=== PATIENT | female | born 1930 | race Caucasian/White ===

== ENCOUNTER 2018-08-09 10:47 | Inpatient (IN) | payer MEDICARE, BC ==
[~2018-08-09] VITALS: Ht 167.6 cm; Wt 84.0 kg
[2018-08-09] MEDS ORDERED: LEVSOD100 PO (11:01)
[2018-08-09] MEDS ORDERED: ATEN50 PO (11:01)
[2018-08-09] MEDS ORDERED: BRIMONIDINE TART5 M1 OP (11:01)
[2018-08-09] MEDS ORDERED: LATANOPROST2.5 ML OP (11:02)
[2018-08-09] MEDS ORDERED: LOSA50 PO (11:02)
[2018-08-09 11:25] LABS: BASOPHILS ABSOLUTE AUTO 0.05 K/mm3 (0.00-0.23); BASOPHILS PERCENT AUTO 1 % (0-2); EOSINOPHILS ABSOLUTE AUTO 0.14 K/mm3 (0.00-0.68); EOSINOPHILS PERCENT AUTO 2 % (0-6); Hematocrit 45.6 % (33.0-51.0); Hemoglobin 14.3 g/dL (11.5-16.0); IMMATURE GRAN ABSOLUTE AUTO 0.03 K/mm3 (0.00-0.10); IMMATURE GRAN PERCENT AUTO 0 % (0-1); LYMPHOCYTES ABSOLUTE AUTO 0.99 K/mm3 (0.84-5.20); LYMPHOCYTES PERCENT AUTO 11 % (21-46); MONOCYTES PERCENT AUTO 7 % (4-13); Mean Corpuscular HGB 29.9 pg (26.0-34.0); Mean Corpuscular HGB Conc 31.4 g/dL (31.5-36.5); Mean Corpuscular Volume 95 fL (80-100); Mean Platelet Volume 10.3 fL (9.1-12.4); NEUTROPHILS ABSOLUTE AUTO 6.85 K/mm3 (1.96-9.15); NEUTROPHILS PERCENT AUTO 79 % (41-73); Platelet Count 176 K/mm3 (150-400); RDW Coefficient Variation 13.6 % (11.7-14.2); RDW Standard Deviation 47.9 fL (35.1-46.3); Red Blood Cell Count 4.79 M/mm3 (3.80-5.20); White Blood Cell Count 8.66 K/mm3 (4.00-11.30)
[2018-08-09 11:44] LABS: Anion Gap 9 mmol/L (6-16); Blood Urea Nitrogen 13 mg/dL (8-24); Bun/Creatinine Ratio 16.8 (12.0-20.0); CO2, Blood 24 mmol/L (21-32); Calcium, Blood 9.1 mg/dL (8.5-10.1); Chloride, Blood 109 mmol/L (98-108); Creatinine, Blood 0.77 mg/dL (0.40-1.00); Glomerular Filtration Rate >60 (60-); Glucose, Blood 142 mg/dL (70-99); Potassium, Blood 5.1 mmol/L (3.5-5.5); Sodium, Blood 142 mmol/L (136-145); Troponin I 0.208 ng/mL (0.000-0.040)
[2018-08-09 11:46] LABS: Source, Urine Clean Catch
[2018-08-09 11:53] LABS: Bilirubin, Urine Neg (Neg); Blood, Urine 2+ (Neg); Glucose Qualitative, Urine Neg (Neg); Ketones, Urine Neg (Neg); Leukocyte Esterase, Urine 1+ (Neg); Nitrite, Urine Neg (Neg); Protein, Urine Neg (Neg); Urobilinogen, Urine NORM (Normal)
[2018-08-09 12:12] LABS: Appearance, Urine Hazy (Clear); Bacteria Few /hpf; Color, Urine Yellow (P-Yellow); Squamous Epithelial Cells Many /hpf (Few); White Blood Cells, Urine 0-2 /hpf (0-5)
[2018-08-09] MEDS ORDERED: LOSA25 PO (15:01)
[2018-08-09] MEDS ORDERED: Aspirin325 MG PO (15:06)
--- NOTE | 2018-08-09 18:51 | NUR ---
PT ARRIVED TO THE MEDICAL FLOOR FROM THE ER AROUND 1445, VIA WHEELCHAIR, A/OX 3, PLEASANT AND COOPERATIVE THE PT IS UP WITH MINIMAL ASSIST TO THE BATHROOM, THE PT IS MILDLY SOB WITH ACTIVITY AT THIS TIME, THE PT WAS ORIENTED TO THE ROOM LAYOUT AND CALL SYSTEM, CALL LIGHT IN REACH, BED IN THE LOW POSITION FRO PT SAFETY
[2018-08-09 18:56] LABS: PCO2 Arterial 34.9 mmHg (35-45); PO2 Arterial 80.8 mmHg (80-100); pH Blood Arterial 7.51 (7.35-7.45)
[2018-08-10 04:02] LABS: Creatinine, Blood 0.95 mg/dL (0.40-1.00); Potassium, Blood 3.7 mmol/L (3.5-5.5)
--- NOTE | 2018-08-10 06:19 | NUR ---
SUMMARY: A/OX4, SPECIFIES NEEDS AND INDEPENDENT IN ROOM. PT DIURESING WELL W/ IMPROVED LS AND SWELLING HAS GONE DOWN TO BLE'S. SHE CONT'S 100% PACED ON TELE AT 60'S BPM AND REMAINS ON 2L O2 VIA NC. SOME SOB NOTED W/EXERTION. PT REPORTS PAIN IN L.ARM BUT REFUSES TYLENOL AND HAS REQUESTED THAT HOME NORCO BE RX'D, AWAITING CALL BACK FROM HOSPITALIST. NO ACUTE CHANGES. VSS/AFEBRILE. WILL MONITOR AND REPORT TO DAY RN.
--- NOTE | 2018-08-10 08:20 | NUR ---
Pt gave consent for care to student nurse Erika Blanco on 08/09/18 for clinical on 08/10/18.
--- NOTE | 2018-08-10 16:05 | NUR ---
PT IS A/OX3, PLEASANT AND COOPERATIVE, THE PT APPEARS TO BE MILDLY ANXIOUS AT BASELINE THE PT IS UP IND IN THE ROOM TO THE BATHROOM, PT IS MILDLY SOB WITH EXCERTION, PT APPEARS TO BE BREATHING EASILY AT REST, THE PT WAS MEDICATED FOR PAIN IN HER RIGHT ARM AND BACK TODAY X1 PER HER REQUEST, THE PT DENIED ANY CHEST PAIN TODAY, CALL LIGHT IN REACH, BED IN THE LOW POSITION
--- NOTE | 2018-08-11 03:44 | NUR ---
SUMMARY: A/OX4, INDEPENDENT IN ROOM AND KNOWS TO CALL FOR ASSIST OOB IF SOB. SHE'S DENIED PAIN AND ALL OTHER COMPLAINTS THIS SHIFT. BLE EDEMA CONT'S TO IMPROVE W/DIURESIS AND LESS PITTING NOTED TO ANKLES. LS ARE CLEAR AND DIMINISHED TO BASES W/SPO2 WNL ON RA. NO ACUTE CHANGES, VSS/AFEBRILE. WILL MONITOR AND REPORT TO DAY RN.
[2018-08-11] MEDS ORDERED: FURO40 PO (13:05)
--- NOTE | 2018-08-11 13:51 | NUR ---
PT DISCHARGED THE PT VERBALIZED UNDERSTANDING OF THE DISCHARGE INSTRUCTIONS, PERSCRIPTION FAXED TO [facility] IN [place] PER PT REQUEST, THE PT APPEARED TO BE BREATHING EASILY ON RA AT DISCHARGE, MILDLY SOB WITH EXCERTION, PT WAS TRANSFERED VIA WHEELCHAIR ACCOMPAINIED BY [employer] AND FRIENDS
== END 2018-08-11 13:49 | disposition home or self-care (01) | DRG 291 ==
LOC: ER 10:47 → MEDS 13:50 → ER 14:39 → MEDS 14:47
PROVIDERS: Emergency Medicine; ADMIT Internal Medicine
DX: I11.0 Hypertensive heart disease with heart failure (principal); I50.31 Acute diastolic (congestive) heart failure; I24.8 Other forms of acute ischemic heart disease; Z95.2 Presence of prosthetic heart valve; E03.9 Hypothyroidism, unspecified; R09.02 Hypoxemia; R77.8 Other specified abnormalities of plasma proteins; Z66 Do not resuscitate; Z95.0 Presence of cardiac pacemaker; Z79.899 Other long term (current) drug therapy; Z88.0 Allergy status to penicillin; Z88.1 Allergy status to other antibiotic agents; Z88.8 Allergy status to other drugs, medicaments and biological substances; Z85.3 Personal history of malignant neoplasm of breast; Z86.718 Personal history of other venous thrombosis and embolism; Z28.20 Immunization not carried out because of patient decision for unspecified reason
CPT/HCPCS: 36415; 36600; 71045; 80048; 81001; 82803; 83880; 84443; 84484; 85025; 87086; 93005; 93010; 93306; 96374; 99285-25; J1650; J1940

== ENCOUNTER 2019-11-16 17:21 | Inpatient (IN) | payer MEDICARE, BC ==
[~2019-11-16] VITALS: Ht 167.6 cm; Wt 83.4 kg
[~2019-11-16 17:21] MED LIST: ATEN50 PO; BRIMONIDINE TART5 M1 OP; LATANOPROST2.5 ML OP; LOSA50 PO
[2019-11-16 18:11] LABS: Source, Urine Catheter
[2019-11-16 18:15] LABS: BASOPHILS ABSOLUTE AUTO 0.03 K/mm3 (0.00-0.23); BASOPHILS PERCENT AUTO 0 % (0-2); EOSINOPHILS PERCENT AUTO 0 % (0-6); Hematocrit 51.8 % (33.0-51.0); Hemoglobin 16.4 g/dL (11.5-16.0); IMMATURE GRAN ABSOLUTE AUTO 0.08 K/mm3 (0.00-0.10); IMMATURE GRAN PERCENT AUTO 1 % (0-1); LYMPHOCYTES ABSOLUTE AUTO 0.57 K/mm3 (0.84-5.20); LYMPHOCYTES PERCENT AUTO 4 % (21-46); MONOCYTES ABSOLUTE AUTO 0.86 K/mm3 (0.16-1.47); MONOCYTES PERCENT AUTO 6 % (4-13); Mean Corpuscular HGB 31.4 pg (26.0-34.0); Mean Corpuscular HGB Conc 31.7 g/dL (31.5-36.5); Mean Corpuscular Volume 99 fL (80-100); Mean Platelet Volume 10.9 fL (9.1-12.4); NEUTROPHILS ABSOLUTE AUTO 13.51 K/mm3 (1.96-9.15); NEUTROPHILS PERCENT AUTO 90 % (41-73); NRBC ABSOLUTE 0.02 K/mm3 (0.00-0.02); NRBC Auto 0.1 /100 WBC (0.0-0.2); Platelet Count 154 K/mm3 (150-400); RDW Standard Deviation 58.8 fL (35.1-46.3); Red Blood Cell Count 5.23 M/mm3 (3.80-5.20); White Blood Cell Count 15.05 K/mm3 (4.00-11.30)
[2019-11-16 18:17] LABS: Blood, Urine 3+ (Neg); Glucose Qualitative, Urine Neg (Neg); Ketones, Urine 2+ (Neg); Leukocyte Esterase, Urine 1+ (Neg); Nitrite, Urine Pos (Neg); Protein, Urine 2+ (Neg); Urobilinogen, Urine 3+ (Normal)
[2019-11-16 18:29] LABS: International Normalized Ratio 1.56; Prothrombin Time Results 16.3 Sec (9.7-11.5)
[2019-11-16 18:43] LABS: Alanine Aminotransfer (ALT/SGP 75 U/L (12-78); Albumin, Blood 3.3 g/dL (3.4-5.0); Alk Phos 115 U/L (50-136); Anion Gap 12 mmol/L (6-16); Aspartate Aminotrans (AST/SGOT 230 U/L (12-37); Bilirubin, Total 4.9 mg/dL (0.1-1.0); Blood Urea Nitrogen 31 mg/dL (8-24); Bun/Creatinine Ratio 35.6 (12.0-20.0); CO2, Blood 20 mmol/L (21-32); Calcium, Blood 9.6 mg/dL (8.5-10.1); Chloride, Blood 110 mmol/L (98-108); Creatinine, Blood 0.87 mg/dL (0.40-1.00); Globulin, Blood 3.3 g/dL (2.2-4.0); Glomerular Filtration Rate >60 (60-); Glucose, Blood 118 mg/dL (70-99); Potassium, Blood 4.3 mmol/L (3.5-5.5); Sodium, Blood 142 mmol/L (136-145); Total Protein, Blood 6.6 g/dL (6.4-8.2)
[2019-11-16 18:45] LABS: Troponin I 0.537 ng/mL (0.000-0.040)
[2019-11-16 18:51] LABS: Appearance, Urine Hazy (Clear); Bilirubin, Urine 2+ (Neg); Color, Urine Amber (P-Yellow)
[2019-11-16 18:52] LABS: Bacteria Many /hpf; Mucus Mod (0-Heavy); Squamous Epithelial Cells Rare /hpf (Few)
[2019-11-16 18:53] LABS: Creatine Kinase MB 75.6 ng/mL (0.0-3.6); Creatine Kinase MB Index 1.9 (0.0-4.0); Magnesium, Blood 2.3 mg/dL (1.6-2.4)
[2019-11-16] MEDS ORDERED: LOSA25 PO (19:11)
[2019-11-16] MEDS ORDERED: LEVSOD100 PO (19:11)
[2019-11-16] MEDS ORDERED: METOPROLOL SUCC25 MG PO (19:11)
[2019-11-16] MEDS ORDERED: ROCKLATAN 0.022.5 ML BOTHEYES (19:13)
[2019-11-16] MEDS ORDERED: TIMO.5OPSO BOTHEYES (19:14)
[2019-11-16] MEDS ORDERED: Aspirin325 MG PO (20:11)
[2019-11-16] MEDS ORDERED: FURO20 PO (20:12)
[2019-11-16 23:37] LABS: U Amphetamine Screen Not Detected; U Barbituate Screen Not Detected; U Benzodiazapine Screen Not Detected; U Buprenorphine Screen Not Detected; U Cannabinoids Screen Not Detected; U Cocaine Screen Not Detected; U Methadone Screen Not Detected; U Methamphetamine Screen Not Detected; U Opiates Screen Not Detected; U Oxycodone Screen Not Detected; U Phencyclidine Screen Not Detected; U Propoxyphene Screen Not Detected
[2019-11-17 02:03] LABS: BASOPHILS ABSOLUTE AUTO 0.03 K/mm3 (0.00-0.23); BASOPHILS PERCENT AUTO 0 % (0-2); EOSINOPHILS PERCENT AUTO 0 % (0-6); Hematocrit 50.7 % (33.0-51.0); Hemoglobin 16.3 g/dL (11.5-16.0); IMMATURE GRAN ABSOLUTE AUTO 0.05 K/mm3 (0.00-0.10); IMMATURE GRAN PERCENT AUTO 0 % (0-1); LYMPHOCYTES ABSOLUTE AUTO 0.78 K/mm3 (0.84-5.20); LYMPHOCYTES PERCENT AUTO 6 % (21-46); MONOCYTES ABSOLUTE AUTO 0.86 K/mm3 (0.16-1.47); MONOCYTES PERCENT AUTO 6 % (4-13); Mean Corpuscular HGB 31.3 pg (26.0-34.0); Mean Corpuscular HGB Conc 32.1 g/dL (31.5-36.5); Mean Corpuscular Volume 98 fL (80-100); Mean Platelet Volume 10.4 fL (9.1-12.4); NEUTROPHILS ABSOLUTE AUTO 11.62 K/mm3 (1.96-9.15); NEUTROPHILS PERCENT AUTO 87 % (41-73); Platelet Count 95 K/mm3 (150-400); RDW Coefficient Variation 16.4 % (11.7-14.2); RDW Standard Deviation 57.4 fL (35.1-46.3); White Blood Cell Count 13.34 K/mm3 (4.00-11.30)
[2019-11-17 02:26] LABS: Alanine Aminotransfer (ALT/SGP 92 U/L (12-78); Albumin/Globulin Ratio 0.9 (0.8-1.8); Alk Phos 102 U/L (50-136); Anion Gap 8 mmol/L (6-16); Aspartate Aminotrans (AST/SGOT 231 U/L (12-37); Bilirubin, Total 3.5 mg/dL (0.1-1.0); Blood Urea Nitrogen 31 mg/dL (8-24); Bun/Creatinine Ratio 36.9 (12.0-20.0); CO2, Blood 25 mmol/L (21-32); Calcium, Blood 9.3 mg/dL (8.5-10.1); Chloride, Blood 112 mmol/L (98-108); Creatine Kinase MB 44.9 ng/mL (0.0-3.6); Creatinine, Blood 0.84 mg/dL (0.40-1.00); Globulin, Blood 3.3 g/dL (2.2-4.0); Glomerular Filtration Rate >60 (60-); Glucose, Blood 102 mg/dL (70-99); Sodium, Blood 145 mmol/L (136-145); Total Protein, Blood 6.3 g/dL (6.4-8.2)
[2019-11-17 02:48] LABS: CPK Creatine Kinase 2478 U/L (26-193); Creatine Kinase MB Index 1.8 (0.0-4.0); Troponin I 0.712 ng/mL (0.000-0.040)
--- NOTE | 2019-11-17 07:56 | NUR ---
ADMIT NOTE/SHIFT SUMMARY PATIENT ADMITED FROM THE ER EARLIER THIS SHIFT. PATIENT SETTLED IN AND ORIENTED TO THE ROOM, UNIT, AND CALL LIGHT. PATIENT PLEASENT BUT CONFUSED. PATIENT ABLE TO STATE NAME AND STATED THAT IT WAS NOVEMBER 12 OR . PATIENT ABLE TO STATE THE PRESIDENT AND THAT SHE IS AT THE HOSPITAL BUT WILL THEN PROCED TO ASK STAFF, "I WANT SOME ALMOND MILK, ITS JUST RIGHT OVER THERE IN MY FRIDGE." SHE WOULD POINT TO THE CORNER OF THE ROOM. PATIENT WOULD BE REORIENTED AND SHE WOULD STATE, "OH, THAT'S RIGHT!" AND THEN SAY, "I NEED TO GET UP AND CHECK TO SEE IF MY WINDOW ARE LOCKED, THE CONSTRUCTION WORKERS WERE HERE TODAY." PATIENT WAS NOT ABLE TO HOLD CONVERSATION WELL. PATIENT PROVIDED WITH MEDICATION TO HELP RELAX HER WORK OF BREATHING RESPRITORY THERPAY ASSESSED PATIENT AND DID NOT FEEL BREATHING TREATMENTS WERE NEEDED AT THAT TIME. PATIENT THEN APPEARED TO SLEEP WELL THROUGHOUT THE REST OF THE NIGHT. REPORT GIVEN TO ONCOMIING SMITA.
--- NOTE | 2019-11-17 10:48 | NUR ---
Echocardiogram completed.
[2019-11-17 11:12] LABS: Creatine Kinase MB 30.9 ng/mL (0.0-3.6)
[2019-11-17 11:21] LABS: Creatine Kinase MB Index 2.2 (0.0-4.0); Troponin I 0.714 ng/mL (0.000-0.040)
[2019-11-17 13:19] LABS: Free Thyroxine 1.29 ng/dL (0.70-1.60)
[2019-11-17 13:20] LABS: Thyroid Stimulating Hormone 1.39 uIU/mL (0.360-4.800)
--- NOTE | 2019-11-17 14:13 | NUR ---
REPORT TO SMITA OCAMPO ON MEDICAL FLOOR TO ASSUME CARE.
--- NOTE | 2019-11-17 18:08 | NUR ---
SHIFT SUMMARY. 1415 PT TRANSFERED TO MEDICAL FLOOR FROM PCU VIA W/C. PT TWO PERSON ASSIST TO BED. PT DENIES PAIN, SOB, N/V. NO NEW CHANGES OR CONCERNS.
--- NOTE | 2019-11-18 04:31 | NUR ---
SHIFT SUMMARY A/O, ABLE TO MAKE NEEDS KNOWN. COOPERATIVE WITH CARE. CALLS AND ANSWERS QUESTIONS APPROPRIATELY. C/O PAIN/DISCOMFORT TO BACK; NEW ORDERS FROM ON-CALL FOR HYDROCODONE. UP TO BSC WITH 2 MAX ASSIST. LEVY SECURED AND DRAINING TO GRAVITY. NO ACUTE CHANGES NOTED OVERNIGHT. APPEARED TO REST. VSS/AFEBRILE. BED IN LOWEST POSITION; ALARM ON. CALL LIGHT AND BELONGINGS WITHIN REACH. WCTM. REPORT TO ONCOMING RN.
[2019-11-18 05:14] LABS: BASOPHILS ABSOLUTE AUTO 0.02 K/mm3 (0.00-0.23); BASOPHILS PERCENT AUTO 0 % (0-2); EOSINOPHILS ABSOLUTE AUTO 0.12 K/mm3 (0.00-0.68); EOSINOPHILS PERCENT AUTO 1 % (0-6); Hematocrit 50.5 % (33.0-51.0); Hemoglobin 15.8 g/dL (11.5-16.0); IMMATURE GRAN ABSOLUTE AUTO 0.03 K/mm3 (0.00-0.10); IMMATURE GRAN PERCENT AUTO 0 % (0-1); LYMPHOCYTES ABSOLUTE AUTO 0.89 K/mm3 (0.84-5.20); LYMPHOCYTES PERCENT AUTO 10 % (21-46); MONOCYTES ABSOLUTE AUTO 0.61 K/mm3 (0.16-1.47); MONOCYTES PERCENT AUTO 7 % (4-13); Mean Corpuscular HGB 30.7 pg (26.0-34.0); Mean Corpuscular HGB Conc 31.3 g/dL (31.5-36.5); Mean Corpuscular Volume 98 fL (80-100); Mean Platelet Volume 10.6 fL (9.1-12.4); NEUTROPHILS ABSOLUTE AUTO 7.63 K/mm3 (1.96-9.15); NEUTROPHILS PERCENT AUTO 82 % (41-73); Platelet Count 106 K/mm3 (150-400); RDW Coefficient Variation 16.6 % (11.7-14.2); RDW Standard Deviation 57.8 fL (35.1-46.3); Red Blood Cell Count 5.15 M/mm3 (3.80-5.20)
[2019-11-18 05:43] LABS: Alanine Aminotransfer (ALT/SGP 81 U/L (12-78); Albumin, Blood 2.8 g/dL (3.4-5.0); Albumin/Globulin Ratio 0.9 (0.8-1.8); Alk Phos 77 U/L (50-136); Anion Gap 6 mmol/L (6-16); Aspartate Aminotrans (AST/SGOT 133 U/L (12-37); Bilirubin, Total 2.2 mg/dL (0.1-1.0); Blood Urea Nitrogen 31 mg/dL (8-24); Bun/Creatinine Ratio 41.5 (12.0-20.0); CO2, Blood 27 mmol/L (21-32); Calcium, Blood 8.9 mg/dL (8.5-10.1); Chloride, Blood 111 mmol/L (98-108); Creatinine, Blood 0.75 mg/dL (0.40-1.00); Globulin, Blood 3.1 g/dL (2.2-4.0); Glomerular Filtration Rate >60 (60-); Glucose, Blood 113 mg/dL (70-99); Sodium, Blood 144 mmol/L (136-145); Total Protein, Blood 5.9 g/dL (6.4-8.2)
--- NOTE | 2019-11-18 18:42 | NUR ---
SHIFT SUMMARY. PT CONTINEUS WITH EDEMA TO BLE, LUNGS CLEAR, DYSPNEA WITH EXERTION, RA. PT STRENGTH WITH TRANSFERS IMPROVED THIS EVENING WHEN COMPARED THIS MORNING. PT PARTICIPATED WITH PT/OT. PT REPORTS BACK PAIN THAT HAS BEEN TOLERABLE EXEPT WITH CHANGES IN POSTIONS, PT DENIED THE NEED FOR PAIN MEDICATION. NO N/V. GOOD MEAL INTAKE. NO OTHER CHANGES OR CONCERNS.
--- NOTE | 2019-11-19 04:02 | NUR ---
SHIFT SUMMARY PT HAS HAD NO ACUTE CHANGES THIS SHIFT, PT C/O LOW BACK PAIN WITH REPOS BUT STATES SHE IS COMFORTABLE ONCE SHE RELAXES IN POSITION, REPOS Q2 PT TOLERATED, PT SLEEPING AT THIS TIME, CALL LIGHT IN REACH, WILL CONT TO MONITOR UNTIL REPORT GIVEN TO DAY RN.
[2019-11-19 05:22] LABS: BASOPHILS ABSOLUTE AUTO 0.03 K/mm3 (0.00-0.23); BASOPHILS PERCENT AUTO 0 % (0-2); EOSINOPHILS ABSOLUTE AUTO 0.14 K/mm3 (0.00-0.68); EOSINOPHILS PERCENT AUTO 2 % (0-6); Hematocrit 49.4 % (33.0-51.0); IMMATURE GRAN ABSOLUTE AUTO 0.03 K/mm3 (0.00-0.10); IMMATURE GRAN PERCENT AUTO 0 % (0-1); LYMPHOCYTES ABSOLUTE AUTO 0.73 K/mm3 (0.84-5.20); LYMPHOCYTES PERCENT AUTO 10 % (21-46); MONOCYTES ABSOLUTE AUTO 0.58 K/mm3 (0.16-1.47); MONOCYTES PERCENT AUTO 8 % (4-13); Mean Corpuscular HGB 31.6 pg (26.0-34.0); Mean Corpuscular HGB Conc 32.4 g/dL (31.5-36.5); Mean Corpuscular Volume 98 fL (80-100); Mean Platelet Volume 10.4 fL (9.1-12.4); NEUTROPHILS ABSOLUTE AUTO 5.73 K/mm3 (1.96-9.15); NEUTROPHILS PERCENT AUTO 79 % (41-73); Platelet Count 97 K/mm3 (150-400); RDW Coefficient Variation 16.4 % (11.7-14.2); RDW Standard Deviation 58.6 fL (35.1-46.3); Red Blood Cell Count 5.06 M/mm3 (3.80-5.20); White Blood Cell Count 7.24 K/mm3 (4.00-11.30)
[2019-11-19 05:44] LABS: Magnesium, Blood 1.9 mg/dL (1.6-2.4)
[2019-11-19 05:45] LABS: Albumin, Blood 2.6 g/dL (3.4-5.0); Anion Gap 7 mmol/L (6-16); Blood Urea Nitrogen 25 mg/dL (8-24); CO2, Blood 28 mmol/L (21-32); Calcium, Blood 8.5 mg/dL (8.5-10.1); Chloride, Blood 109 mmol/L (98-108); Creatinine, Blood 0.66 mg/dL (0.40-1.00); Glomerular Filtration Rate >60 (60-); Glucose, Blood 110 mg/dL (70-99); Phosphorus, Blood 2.5 mg/dL (2.5-4.9); Potassium, Blood 3.6 mmol/L (3.5-5.5); Sodium, Blood 144 mmol/L (136-145)
[2019-11-19] MEDS ORDERED: POTCHL20ER PO (09:15)
[2019-11-19] MEDS ORDERED: LATA.005SO BOTHEYES (09:15)
--- NOTE | 2019-11-19 12:18 | NUR ---
PATIENT D/C PT DISCHARGING TO [facility]. REMOVED LEVY, IV AND TELE. EDUCATED PT ON REHAB PROCESS, PT APPREHENSIVE TO GO TO FACILITY. PROVIDED ENCOURAGMENT ABOUT BENEFITS OF GOING TO FACILITY WITH THE GOAL OF RETURNING HOME TO BASELINE FUNCTIONING. REPORT GIVEN TO [facility].
== END 2019-11-19 15:45 | DRG 558 ==
LOC: ER 17:21 → PCU 21:38 → MEDS 11-17 14:30 → ENPENDDIS 11-19 09:33 → MEDS 11-19 14:25
PROVIDERS: Emergency Medicine; Internal Medicine; Internal Medicine Gastroenterology; ADMIT Internal Medicine
DX: M62.82 Rhabdomyolysis (principal); G93.40 Encephalopathy, unspecified; I48.20 Chronic atrial fibrillation, unspecified; Z79.82 Long term (current) use of aspirin; E03.9 Hypothyroidism, unspecified; Z86.718 Personal history of other venous thrombosis and embolism; Z87.891 Personal history of nicotine dependence; R74.0 Nonspecific elevation of levels of transaminase and lactic acid dehydrogenase [LDH]; Z95.2 Presence of prosthetic heart valve; Z66 Do not resuscitate; H40.9 Unspecified glaucoma; Z95.0 Presence of cardiac pacemaker; I07.1 Rheumatic tricuspid insufficiency; E87.70 Fluid overload, unspecified; I11.0 Hypertensive heart disease with heart failure; I50.9 Heart failure, unspecified
CPT/HCPCS: 36415; 51702; 70450; 71045; 73502; 74177; 80053; 80069; 81001; 82550; 82553; 83605; 83690; 83735; 83880; 84145; 84439; 84443; 84484; 85025; 85610; 87040; 87086; 93005; 93010; 93306; 94760; 96365-59; 97112; 97162; 97166; 97530; 97535; 99285-25; A9270; A9270-GY; J1650; J1940; J1956; J7030; P9612; Q9967

== ENCOUNTER 2020-03-07 09:18 | Day surgery (SDC) | payer MEDICARE, BC ==
[~2020-03-07] VITALS: Ht 167.6 cm; Wt 71.0 kg
[~2020-03-07 09:18] MED LIST changes: +Aspirin325 MG PO; +FURO20 PO; +LATA.005SO BOTHEYES; +LEVSOD100 PO; +LOSA25 PO; +METOPROLOL SUCC25 MG PO; +Ocuvite Preser1 EACH PO; +POTCHL20ER PO; +Papaya1 EAC1 PO; +ROCKLATAN 0.022.5 ML BOTHEYES; +TIMO.5OPSO BOTHEYES
--- NOTE | 2020-03-07 14:50 | NUR ---
PT DRESSED SELF WITHOUT ISSUE, AMB TO BATHROOM USING WALKER, GAIT STEADY; IV REMOVED-CANNULA INTACT.
--- NOTE | 2020-03-07 14:56 | NUR ---
PT RECEIVED DISCHARGE INSTRUCTIONS, PACEMAKER APPT, AND AFTER CARE INSTRUCTIONS; VEBALIZED GOOD UNDERSTANDING. PT LEFT FACILITY VIA W/C, CONDITION STABLE.
== END 2020-03-07 14:56 | disposition home or self-care (01) ==
LOC: MHTC 09:18
DX: Z45.010 Encounter for checking and testing of cardiac pacemaker pulse generator [battery] (principal); I49.5 Sick sinus syndrome; I48.19 Other persistent atrial fibrillation; H15.009 Unspecified scleritis, unspecified eye; H40.9 Unspecified glaucoma; J45.909 Unspecified asthma, uncomplicated; E03.9 Hypothyroidism, unspecified; I08.1 Rheumatic disorders of both mitral and tricuspid valves; I77.819 Aortic ectasia, unspecified site; Z95.2 Presence of prosthetic heart valve; Z88.8 Allergy status to other drugs, medicaments and biological substances; Z88.1 Allergy status to other antibiotic agents; Z88.0 Allergy status to penicillin
CPT/HCPCS: 33228; 99152; 99153; C1785; J0690; J2250; J3010; J7040